=== PATIENT | female | born 1980 | race Caucasian/White ===

== ENCOUNTER 2018-12-13 01:53 | Observation (INO) | payer MEDICAID ==
[~2018-12-13] VITALS: Ht 167.6 cm; Wt 74.4 kg
[2018-12-13] VITALS (17 sets, daily range): BP systolic 93–107; BP diastolic 51–76
[~2018-12-13 01:53] MED LIST: ACE3 MT; ACE3 PO; ANTIDEPRESSANT; CIT20 PO; DESV50TA9; DOXY150T6 PO; DULO60CA7 PO; HYDR-3250 PO; IBU600 PO; IRON1TAB55 PO; LOOVRAL PO; LOR5/325 PO; MULT-820 PO; NAP500 PO; NORG1TAB6 PO; ONDA-153 SL; ONDA4TAB PO; PREN1TAB15 PO; PRO25 PO; SCOP1PAT16 TD; SERT25TA87 PO; SULF-198 PO; THYR60TA25 PO; TRAM-420 PO; TRAZ-133 PO; TRAZ50TA34 PO; VENL150C61 PO; ZYPREXA PO; [UNRECOGNIZED DRUG - CODE]
[2018-12-13] MEDS ORDERED: LIDOCAINE/SOD BICARB 8.4% SYR ID ONE (06:30)
[2018-12-13] MEDS ORDERED: MIDAZOLAM 2 MG/2 ML VIAL IVP PRN (06:30)
[2018-12-13] MEDS ORDERED: FAMOTIDINE 20 MG TAB PO ONE (06:30)
[2018-12-13] MEDS ORDERED: NORMOSOL R SOLN(*) 1000 ML BAG 1,000 ML IV PRN (06:30)
[2018-12-13] MEDS ORDERED: cefOXitin/DEX(*) 2GM/50ML PREM 50 ML IVPB ONE (06:30)
[2018-12-13 06:42] LABS: PLATELET COUNT, AUTOMATED 279 K/uL (150-450)
[2018-12-13] MEDS ORDERED: DEXAMETHASONE SOD PHOS 10MG/ML ONE (07:05)
[2018-12-13] MEDS ORDERED: fentaNYL CITR 100 MCG/2 ML AMP ONE ×2 (07:05→09:46)
[2018-12-13] MEDS ORDERED: LIDOCAINE MPF 1% 5 ML VIAL ONE (07:05)
[2018-12-13] MEDS ORDERED: PROPOFOL EMUL(*) 10MG/ML 20 ML 20 ML ONE (07:05)
[2018-12-13] MEDS ORDERED: ROCURONIUM BROM 10 MG/ML 10 ML ONE (07:05)
[2018-12-13] MEDS ORDERED: ONDANSETRON 4 MG/2 ML VIAL ONE (07:05)
[2018-12-13] MEDS ORDERED: KETAMINE HCL-NS 50 MG/5 ML SYR ONE (07:05)
[2018-12-13] MEDS ORDERED: MANNITOL* (20%)100 GM/500ML BG 500 ML IVPB ONE (07:09)
[2018-12-13] MEDS ORDERED: ROPIVACAINE 0.2% 20 ML VIAL ONE (07:10)
--- NOTE | 2018-12-13 07:20 | NUR ---
DR. BEACH SPOKE WITH PATIENT ABOUT HAVING A SOCIAL SERVICE CONSULT. SHE AGREED AND WANTED TO HAVE A CONSULT. ORDER WAS PUT INTO COMPUTER.
[2018-12-13] MEDS ORDERED: ePHEDrine 25 MG/5 ML DISP.SYR IVP ONE (07:55)
[2018-12-13] MEDS ORDERED: DLR(*) 1000 ML BAG 1,000 ML IV PRN (09:39)
[2018-12-13] MEDS ORDERED: PROMETHAZINE 25 MG/ML 1 ML AMP IVP PRN (09:40)
[2018-12-13] MEDS ORDERED: SIMETHICONE 80 MG CHEW CHEW PRN (09:40)
[2018-12-13] MEDS ORDERED: ACETAMINOPHEN 325 MG TAB PO PRN (09:40)
[2018-12-13] MEDS ORDERED: ONDANSETRON 4 MG/2 ML VIAL IV PRN (09:40)
[2018-12-13] MEDS ORDERED: HYDROmorphone HCL 2 MG TAB PO PRN (09:40)
[2018-12-13] MEDS ORDERED: ACETAMINOPHEN(*)1000 MG/100 ML 100 ML IVPB ONE (09:46)
[2018-12-13] MEDS ORDERED: IBUP800T37 PO (09:47)
[2018-12-13] MEDS ORDERED: OXYC-865 PO (09:47)
[2018-12-13] MEDS ORDERED: DOCU-416 PO (09:47)
--- NOTE | 2018-12-13 09:57 | Post Operative Note ---
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 Operative Day Date: Dec 13, 2018 Time: 09:54 Physicians Surgeon: Joaquin Splitting Machine Tender: Marielena Benson Anesthesia: GETA Diagnosis Pre-Op Diagnosis: Dysmenorrhea Dysparunia Embryonic cyst of fallopian tube Post-Op Diagnosis: same Procedure Findings: enlarged uterus endometriosis embryonic cyst of right adnexa Procedure(s): RATLH Bilateral salpingectomy Right adnexal cystectomy cystoscopy Specimen Removed:(Maybe N/A): uterus tubes Complications: [id number] Fluids Fluids: 1400 ml Estimated Blood Loss: minimal Dictated Date OP Note Dictated: Dec 13, 2018 Time OP Note Dictated: 09:57 Copies to: DON BEACH MD ; DON BEACH MD Dec 13, 2018 09:57
--- NOTE | 2018-12-13 10:52 | OPERATIVE REPORT 1 ---
EVENT DATE: December 13, 2018 SURGEON: Ramon Nuñez MD ANESTHESIOLOGIST: Sudarshan Daley MD ANESTHESIA: General endotracheal. MACHINE SHORTHAND REPORTER: CARLEY Aguillon PREOPERATIVE DIAGNOSES 1. Deep dyspareunia. 2. Secondary dysmenorrhea. 3. Embryonic cyst of the fallopian tube on the right. POSTOPERATIVE DIAGNOSES 1. Deep dyspareunia. 2. Secondary dysmenorrhea. 3. Embryonic cyst of the fallopian tube on the right. 4. Endometriosis. PROCEDURE PERFORMED 1. Robotic-assisted total laparoscopic hysterectomy. 2. Bilateral salpingectomy. 3. Diagnostic cystoscopy. ESTIMATED BLOOD LOSS Minimal. FLUIDS 1400 ccs IV crystalloid. URINE OUTPUT Not measured. FINDINGS Inspecting the abdomen, normal appearing abdominal contents, right upper quadrant, normal appearing left upper quadrant. The pelvis contained an enlarged uterus, approximately 10 cm in size, pelvic varicosities, right paratubal (embryonic cyst). Normal appearing ovaries bilaterally. Endometriosis visible in posterior cul-de-sac as well as the bilateral uterosacral ligaments. On cystoscopy, normal appearing bladder. No visible injuries. Ureteral patency bilaterally. PROCEDURE IN DETAIL The patient was brought to the operating room with a working IV and placed in the dorsal supine position. She was placed under general endotracheal anesthesia and moved to the dorsal lithotomy position. She was then prepped and draped in the usual sterile fashion. A weighted speculum was placed in the vagina. The cervix was grasped on the anterior lip with a single-tooth tenaculum. It was sounded to a depth of 9 cm. The cervix was already dilated enough to accommodate a large VCare uterine manipulator. This was passed into the uterus, bulb inflated and secured. The VCare cup was sutured to the cervix and the blue insufflation cup was approximated against this. All instruments were then removed from the vagina. The Rod catheter was placed to dependent drainage and the legs were brought back to the supine position. Gloves were changed and 2 cm above the umbilicus infiltrated with 0.2% Naropin. An 8 mm stab incision was made. The Veress needle was passed through this incision into the abdomen while elevating the anterior abdominal wall and pneumoperitoneum was created to an intraabdominal pressure of 20 mmHg. The Veress needle was then removed and an 8 mm bladeless trocar was passed through this incision into the abdomen under direct visualization. Additional ports were placed 8 cm left lateral x2 on the left and x2 on the right. These were placed under similar technique and without incident. The patient was moved to the Trendelenburg position and the abdomen and pelvis were surveyed. The bowel was swept out of the pelvis. The robot was brought overlying the patient and the scope was docked and targeted. The remaining arms were docked and instruments were placed and brought into the abdomen under direct visualization. ProGrasp on arm 4, monopolar scissors on 3, scope on 2 and vessel sealer on 1. I then scrubbed out and presented at the console. The procedure proceeded as follows: The right fallopian tube was elevated, exposing the paratubal cyst. Monopolar scissors were used to make an incision in the cyst and chocolate fluid was extruded from the cyst, consistent with the endometriosis observed in the pelvis. The mesosalpinx was visualized, inspected, cauterized and transected through with the vessel sealer up to the uteroovarian ligament, which was cauterized and transected in a likewise fashion. The round ligament on this side was cauterized and transected with the vessel sealer and then into posterior and anterior leaflets. The anterior leaflet was dissected along the anterior uterus and pushing the bladder down and away from the operative area. The VCare cup was visually present as an indentation and dissected proceeded towards this indentation. The posterior peritoneum was then skeletonized away from the vessels in order to expose the uterine vessels which were cauterized in a perpendicular fashion with the vessel sealer x2 and transected. Parallel bites were taken along the lateral uterus down to and overlying the cervix and the VCare cup indentation. This was hemostatic and, therefore, attention was turned to the contralateral side, which in likewise fashion the mesosalpinx was cauterized and transected with the vessel sealer, excising the fallopian tube up to the uteroovarian ligament, which was cauterized and transected with the vessel sealer. The round ligament was then cauterized and transected and entering into the broad ligament, which was pulled apart into anterior and posterior leaflets. The anterior dissection was completed and the posterior dissection was used to skeletonize the uterine vessels. These were then cauterized on a perpendicular fashion x2 and transected, followed by parallel bites along the lateral uterus down to and overlying the cervix and the VCare cup indentation. Colpotomy was then performed and once the VCare cup was visible continuous circumferential incision was made through the uterosacral ligaments into the contralateral side, which completed the excision of the uterus from the vaginal cuff. The uterus was removed through the vagina and sent to pathology. The pelvis was then copiously irrigated and suctioned dry. A light amount of cautery was applied to the cuff and instruments were then changed. An 0 Vicryl was then used to suture ligate the vaginal angle to the ipsilateral uterosacral ligament. This was performed on both sides followed by running continuous closure of the vaginal cuff using a 2-0 V-Loc suture in a running nonlocking fashion. Once completed, this was hemostatic and without visible deficits. The pelvis was copiously irrigated and suctioned dry. Therefore, the scope and instruments were then removed. The robot was undocked. Trocars were removed after the pneumoperitoneum was suctioned out. I scrubbed back into the procedure and presented for cystoscopy. The bladder was inspected with the cystoscope throughout its entirety and found to be without visible injuries. The ureteral orifices were observed to have excellent urine jets from both sides, confirming ureteral patency. No visible injuries or deficits. Therefore, the procedure was terminated. Skin incisions were repaired with 4-0 Monocryl simple subdermal and covered with Dermabond skin adhesive. The Rod catheter was left out. The patient was returned to the dorsal supine position, awakened from general anesthesia in stable condition. Sponge, lap, needle and instrument counts were all correct x3. She was awakened from general anesthesia in stable condition. KIRK
[2018-12-13] MEDS ORDERED: SUGAMMADEX SOD 500 MG/5 ML SDV ONE (13:21)
[2018-12-13] MEDS ORDERED: KETOROLAC 30 MG/ML VIAL ONE (13:21)
[2018-12-13] MEDS: KETOROLAC 30 MG/ML VIAL IVP SCH ×2 (15:12→21:07)
[2018-12-13] MEDS ORDERED: traZODone HCL 50 MG TAB PO PRN (21:00)
[2018-12-13] MEDS ORDERED: ZOLPIDEM TARTRATE 10 MG TAB PO PRN (21:00)
[2018-12-13] MEDS: FAMOTIDINE 20 MG TAB PO SCH (21:07)
[2018-12-13] MEDS: DOCUSATE CALCIUM 240 MG CAP PO SCH (21:07)
[2018-12-14] MEDS: KETOROLAC 30 MG/ML VIAL IVP SCH (02:55)
[2018-12-14 03:19] VITALS: BP 98/64
[2018-12-14] MEDS ORDERED: THYROID 60 MG TAB PO SCH (06:00)
[2018-12-14 06:27] LABS: PLATELET COUNT, AUTOMATED 246 K/uL (150-450)
[2018-12-14] MEDS ORDERED: DULoxetine HCL 30 MG CAPCR PO SCH (09:00)
[2018-12-14] MEDS ORDERED: IBUPROFEN 800 MG TAB PO PRN (09:00)
[2018-12-14 09:10] VITALS: BP 124/72
[2018-12-14] MEDS: FAMOTIDINE 20 MG TAB PO SCH (09:16)
[2018-12-14] MEDS: DOCUSATE CALCIUM 240 MG CAP PO SCH (09:16)
--- NOTE | 2018-12-14 09:16 | OB/GYN Progress Note ---
OB Subjective Progress Notes Subjective 38 yo female POD #1 from [facility]; bilateral salpingectomy; right adnexal cystectomy and cystoscopy. Doing well this morning. Pain controlled with pain medication. No vaginal bleeding noted. Voiding well. Tolerating PO, no nausea/vomiting. GI: POS Flatus; NEG Nausea, NEG Vomiting, NEG Bowel Movement : Voiding Well, Vaginal Bleeding (None) Pain: Moderate, Tolerating PO Pain Meds Neurological: No Headache OB Objective Physical Exam Vital Signs Date Time Temp Pulse Resp B/P (MAP) Pulse Ox O2 Delivery O2 Flow Rate FiO2 12/14/18 03:19 98.5 84 13 98/64 (75) 98 Room Air 12/13/18 12:30 1.0 Intake and Output 12/14/18 07:00 Intake Total 2650 ml Output Total 1350 ml Balance 1300 ml Intake Oral 600 ml IV Total 2050 ml Output Urine Total 1350 ml # Voids 1 General Appearance: Alert/Awake/No Acute Distress Neurological: No Gross deficits Eyes: Normal Extraocular Movement & Vison Cardiovascular: Normal Rhythm & Peripheral Pulses Respiratory: No Respiratory Distress, Clear to Auscultation Abdomen: Bowel Sounds Present, Other (soft non-distended. 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 Plan for discharge home today. Follow-up in the office in 2 weeks for post-op appointment, sooner as needed NILSON REMY Dec 14, 2018 09:16
--- NOTE | 2018-12-14 09:20 | OB/GYN Discharge Summary ---
Discharge Summary Reason for Hosp/Final Diag: (1) Deep dyspareunia (2) Secondary dysmenorrhea (3) Other ovarian cyst, right side (4) Endometriosis (5) Embryonic cyst of fallopian tube (6) History of robot-assisted laparoscopic hysterectomy Hospital Course & Plan: Doing well post-op day 1. Plan for discharge home today. Follow-up in the office in 2 weeks for post-op appointment, sooner as needed Lates Vital Signs Vital Signs Date Time Temp Pulse Resp B/P (MAP) Pulse Ox O2 Delivery O2 Flow Rate FiO2 12/14/18 03:19 98.5 84 13 98/64 (75) 98 Room Air 12/13/18 12:30 1.0 Weight (Pounds): 164 Result Diagram: 12/14/18608 Condition: Improved Discharge: Home, Self Senior Care Meds Active Scripts Oxycodone Hcl/Acetaminophen (PERCOCET 5-325 MG TABLET) 1 Each Tablet, 1 EACH PO Q4-6H PRN for PAIN, #20 TAB 0 Refills TAKE 1 TABLET NEEDED FOR PAIN - NO CLOSER THAN EVERY 4-6 HOURS. Prov:NILSON REMY 12/13/18 Reported Medications Scopolamine (Scopolamine) 1 Mg/3 Day Patch.td.3, 1.[address] BEHIND EAR NIGHT BEFORE SURGERY 12/12/18 Sulfamethoxazole/Trimet 800-160 Mg Tab (BACTRIM DS TABLET) 1 Each Tablet, 1 TAB PO BID for 5 Days, TAB 12/01/18 Vit #108/Iron/Fa ( ONE TABLET) 1 Each Tablet, 1 EACH PO DAILY 12/01/18 Duloxetine HCl (Duloxetine HCl) 60 Mg Capsule.dr, 30 MG PO DAILY 12/01/18 Norgestrel-Ethinyl Estradiol (LOW-OGESTREL) 1 Each Tab, 1 EACH PO DAILY, TAB 12/01/18 Thyroid,Pork (ARMOUR THYROID) 60 Mg Tablet, 60 MG PO DAILY 12/01/18 Trazodone Hcl (TRAZODONE HCL) 50 Mg Tablet, 50 MG PO QHS 07/25/18 [facility] [phone], Dr. Nuñez [phone] Follow up in: 2 wks PO Discharge Diet: As Tolerates Discharge Activity: No Heavy Lifting x 6 wks, No Heavy Lifting > 10lb, Pelvic Rest Special Instructions: No driving on narcotic pain medication NILSON REMY Dec 14, 2018 09:20
[2018-12-15] MEDS ORDERED: INFLUENZA VIRUS VAC 0.5ML SYR IM ONLY ONE (09:40)
== END 2018-12-14 08:39 | disposition home or self-care (01) ==
LOC: OR 01:53 → PED 11:03
PROVIDERS: ADMIT Obstetrics & Gynecology; ATTEND Obstetrics & Gynecology
DX: N80.0 Endometriosis of uterus (principal); N72 Inflammatory disease of cervix uteri; D27.0 Benign neoplasm of right ovary
CPT/HCPCS: 36415; 58571; 84703; 85014; 85018; 85025; 88307; G0378; J0131; J0694; J1100; J1885; J2001; J2250; J2370; J2405; J2704; J2795; J3010; J3490; S2900

== ENCOUNTER → 2019-04-11 | Outpatient (REF) | payer MEDICAID ==
[~2019-04-11] MED LIST changes: +DOCU-416 PO; +IBUP800T37 PO; +OXYC-865 PO; -PREN1TAB15 PO; +PRENATAL ONE T1 EAC1 PO
[2019-04-11 13:12] LABS: PLATELET COUNT, AUTOMATED 288 K/uL (150-450)
[2019-04-11 13:18] LABS: INR 0.97
== END ==
LOC: ZZSTITCHES 12:52
PROVIDERS: ATTEND Physician Assistant
DX: K62.5 Hemorrhage of anus and rectum (principal); K92.1 Melena
CPT/HCPCS: 82040; 82247; 82310; 82374; 82435; 82565; 82947; 84075; 84132; 84155; 84295; 84450; 84460; 84520; 85025; 85610; 85651; 85730; 86140